=== PATIENT | female | born 1995 | race African-American/Black ===

== ENCOUNTER 2019-07-25 16:55 | Outpatient (RCR) | payer OTHER, SELFPAY | END 2019-10-23 23:59 | disposition home or self-care (01) | LOC: ANHLAB 16:55 | PROVIDERS: PCP Obstetrics & Gynecology; Visit Provider Obstetrics & Gynecology | DX: Z36.87 Encounter for antenatal screening for uncertain dates (principal) | CPT/HCPCS: 36415; 84702 ==

== ENCOUNTER 2019-10-20 10:25 | Outpatient (CLI) | payer OTHER, SELFPAY ==
--- NOTE | ~2019-10-20 | US_ITS ---
EXAMINATION: US OB /maternal detail DATE: 10/20/2019 11:26 INDICATION: Second trimester anatomic survey TECHNIQUE: Real-time ultrasound of the pelvis was performed. COMPARISON: None. FINDINGS: There is a single living fetus in vertex presentation. The placenta is fundal. heart rate is 15 2 beats per minute (bpm). cardiac activity and movement are noted. The amniotic fluid in dex is 12.9 cm which is normal. The following anatomy was identified as normal: 4 chamber heart 3 vessel cord cord insertion kidneys urinary bladder stomach spine diaphragm ventricles cisterna magna cerebellum The following biometric data were obtained: Biparietal diameter (BPD): 4.7 cm; head circumference (HC): 17.2 cm; abdominal circumference (AC): 16 .1 cm; femur length (FL): 3.4 cm. These measurements are concordant. Estimated weight is 381 g +/- 57 g, which correlates with the >97th percentile when 03/11/2020 i s used as estimated date of delivery. As single measurements, these parameters are each equal to the following estimated gestational ages w ith ranges of +/- 2 standard deviations: BPD: 20 weeks 3 days +/- 1 weeks 5 days. HC: 19 weeks 6 days +/- 1 weeks 3 days. AC: 21 weeks 1 days +/- 2 weeks 0 days. FL: 20 weeks 5 days +/- 1 weeks 6 days. estimated gestational age based solely on measurements from this exam is 20 weeks 4 days +/- 1 weeks 3 days. IMPRESSION: 1. Single living fetus in vertex presentation. 2. Estimated weight is 381 g +/- 57 g, which correlates with the >97th percentile when 0 is used as estimated date of delivery. Reviewed, dictated and finalized at location A. IMPRESSION: 1. Single living fetus in vertex presentation. 2. Estimated weight is 381 g +/- 57 g, which correlates with the >97th pe rcentile when 03/11/2020 is used as estimated date of delivery.
== END 2019-10-20 10:26 | disposition home or self-care (01) ==
PROVIDERS: Visit Provider Obstetrics & Gynecology
DX: Z34.92 Encounter for supervision of normal pregnancy, unspecified, second trimester (principal); Z3A.00 Weeks of gestation of pregnancy not specified
CPT/HCPCS: 76805

== ENCOUNTER 2020-03-02 05:25 | Inpatient (IN) | payer OTHER, SELFPAY ==
[2020-03-02] VITALS (49 sets, daily range): BP systolic 80–119; BP diastolic 39–88; PULSE 51–124; RESP 18; TEMP 36.9–37.2; O2SAT 98–100
--- NOTE | 2020-03-02 05:25 | LDADM ---
This patient, Meir Jarrett, was admitted to Labor/Delivery/Recovery 106 on 03/02/20 at 05:25. Plans for labor, pain management and were discussed with patient. Patient/family oriented to hospital policies and general routines including ID bracelet, bed and alarms, visiting hours, pain management, procedures, bathroom and other care routines, personal items, smoking policy, room service/diet and guest tray routines, security routines, and visiting hours. Patient/Family are encouraged to report perceived risks to care and to ask questions if they do not understand what they are told or what they should do. See OBIX for further documentation.
[2020-03-02 06:17] LABS: Basophils Percent Auto 0.3 % (0.2-1.2); Eosinophils Absolute Auto 0.1 K/mm3 (0-0.3); Eosinophils Percent Auto 1.2 % (0-4.4); Hematocrit 37.6 % (37.0-47.0); Hemoglobin 12.7 g/dL (12.0-15.0); Immature Granulocyte Absolute 0.03 K/mm3 (0.00-0.031); Immature Granulocyte Percent A 0.3 % (0-0.5); Lymphocytes Absolute Auto 2.76 K/mm3 (0.9-3.2); Lymphocytes Percent Auto 31.9 % (18.3-44.2); Mean Corpuscular HGB Conc 33.8 g/dl (32-36); Mean Corpuscular Hemoglobin 29.3 pg (26-34); Mean Corpuscular Volume 86.6 fl (80-100); Monocytes Absolute Auto 0.5 K/mm3 (0.1-0.6); Monocytes Percent Auto 5.8 % (2.6-8.5); Neutrophils Absolute Auto 5.2 K/mm3 (1.3-6.7); Neutrophils Percent Auto 60.5 % (45.5-73.1); Platelet Count Result 248 k/mm3 (150-375); Red Blood Count 4.34 M/mm3 (4.2-5.4); Red Cell Distribution Width 13.2 % (11.5-14.5); White Blood Count 8.7 K/mm3 (4.5-10.0)
[2020-03-02] MEDS: OXYTOCIN 30 UNITS/NS 500 ML 30 UNITS/500 ML BAG IV CONT (06:42)
[2020-03-02] MEDS: LACTATED RINGERS 1,000 ML 125 ML IV CONT ×4 (06:42→12:04)
[2020-03-02] MEDS: AMPICILLIN 2 GM/NS 100 ML 2 GM/100 ML BAG IVPB (06:43)
--- NOTE | 2020-03-02 07:16 | WPDOBADMIT ---
Obstetrics - Admit Note Admission Note: record reviewed. No pertinent additions to the history and/or any subsequent changes in the physical findings that are not consistent with the expected course of the were found. Additions to the history and/or subsequent changes in the physical findings follow. Here for MIL at 38 5/7 wks per M recommend delivery for decreased DELORES and small pericardial effusion suspected to be physiologic. Cervix 3-4/50/-2 anterior. AROM with clear fluid. FHTs reactive
[2020-03-02] MEDS: AMPICILLIN 1 GM/NS 50 ML 1 GM/50 ML BAG IVPB (10:49)
--- NOTE | 2020-03-02 11:28 | P.PNAN_ITS ---
Anes - Eval Pre Procedure Procedure: Labor Epidural Date/Time: 03/02/20 11:28 Surgeon: Iram Preop Diagnosis: Labor Pain Pre Op Diagnosis: IOL Patient Data Age: 24 Gender: F Height: 5 ft 3 in Weight: Last Vital Signs Temp 37.1 C 03/02/20 09:00 Pulse 63 03/02/20 11:26 BP 106/65 03/02/20 11:26 Pulse Ox 100 03/02/20 11:24 Allergies Allergy/AdvReac Type Severity Reaction Status Date / Time No Known Allergies Allergy Verified 03/01/20 15:58 Home Medications Medication Instructions Recorded Confirmed Type PNV cmb#95-ferrous fumarate-FA 1 tablet PO DAILY 03/01/20 03/01/20 History [] Laboratory Tests 03/02/20 03/02/20 03/02/20 06:07 06:07 06:07 WBC 8.7 K/mm3 K/mm3 (4.5-10.0) RBC 4.34 M/mm3 M/mm3 (4.2-5.4) Hgb 12.7 g/dL g/dL (12.0-15.0) Hct 37.6 % % (37.0-47.0) MCV 86.6 fl fl (80-100) MCH 29.3 pg pg (26-34) MCHC 33.8 g/dl g/dl (32-36) RDW 13.2 % % (11.5-14.5) Plt Count 248 k/mm3 k/mm3 (150-375) MPV 10.0 fl fl (7.4-10.4) Immature Gran % (Auto) 0.3 % % (0-0.5) Neut % (Auto) 60.5 % % (45.5-73.1) Lymph % (Auto) 31.9 % % (18.3-44.2) Cobb % (Auto) 5.8 % % (2.6-8.5) Eos % (Auto) 1.2 % % (0-4.4) Baso % (Auto) 0.3 % % (0.2-1.2) Lymph # (Auto) 2.76 K/mm3 K/mm3 (0.9-3.2) Cobb # (Auto) 0.5 K/mm3 K/mm3 (0.1-0.6) Eos # (Auto) 0.1 K/mm3 K/mm3 (0-0.3) Baso # (Auto) 0.0 K/mm3 K/mm3 (0.0-0.1) Abs Immat Gran (auto) 0.03 K/mm3 K/mm3 (0.00-0.031) Absolute Neuts (auto) 5.2 K/mm3 K/mm3 (1.3-6.7) Absolute Nucleated RBC 0.0 K/mm3 K/mm3 (0.0-0.012) Nucleated RBC % 0.0 % % (0.0-0.2) RPR Pending Blood Type O Positive Antibody Screen Negative : gestational age (GUNNAR 03/11/20) Patient hx anesthesia problems: none Family hx anesthesia problems: none [facility] Family History Family History (Updated 03/01/20 @ 15:59 by Alvin Santana RN) Other Unknown family medical history Social History Social History Smoking status: Never smoker Second hand tobacco smoke exposure: No Substance use: never Spiritual care concerns: No Exam Day of Procedure 03/02/20 11:28
--- NOTE | 2020-03-02 11:55 | PM.OBPRVD ---
OB - Delivery Note Procedure Delivery date: 03/02/20 Procedure: events: Labor Induction and Oligohydramnios Intrapartal events: None Induction method: AROM and per pitocin protocol Delivery monitor: external FHT and external uterine Route of delivery: Laceration description: Labial (bilateral lacerations between labia majora and minora R>L) Delivery repair: vicryl (3-0 on sh) Specimen: Yes (placenta) Estimated blood loss (mL): 100 Anesthesia type: Epidural Disposition: floor [place] Baby Weeks of gestation at delivery: 38 Infant gender: Female presentation: vertex Placenta delivery description: Spontaneous cord vessel description: 3 Vessels score one minute: 9 score five minutes: 9
--- NOTE | 2020-03-02 11:58 | PM.OBDSVD ---
DS: Admitting Diagnosis Admitting Diagnosis Admitting Diagnosis: IUP 38 4/ oligohydramnios pericardial effusion OB - DS: Summary OB Procedures : NST and Ultrasound OB Procedures Intrapartum: Spontaneous Vag Delivery OB Procedures: : None Peripartum Data Delivery Method: Natural Vaginal Laceration description: Labial complications: none Status at Discharge Functional status at discharge: independent ambulation Overall status at discharge: patient is progressing back to baseline Time Spent with Patient Time attestation: Total time spent providing and/or coordinating discharge services: DS: Data Data Completed and Pending Labs on day of discharge: Labs from last 24 hours 03/02/20 03/02/20 03/02/20 06:07 06:07 06:07 WBC 8.7 RBC 4.34 Hgb 12.7 Hct 37.6 MCV 86.6 MCH 29.3 MCHC 33.8 RDW 13.2 Plt Count 248 MPV 10.0 Immature Gran % (Auto) 0.3 Neut % (Auto) 60.5 Lymph % (Auto) 31.9 [place] % (Auto) 5.8 Eos % (Auto) 1.2 Baso % (Auto) 0.3 Lymph # (Auto) 2.76 [place] # (Auto) 0.5 Eos # (Auto) 0.1 Baso # (Auto) 0.0 Abs Immat Gran (auto) 0.03 Absolute Neuts (auto) 5.2 Absolute Nucleated RBC 0.0 Nucleated RBC % 0.0 RPR Pending Blood Type O Positive Antibody Screen Negative Discharge Plan Discharge Attending physician on discharge: Rachelle Walden Consulting providers: Maldonado Canas Jr. Discharging Clinician: Rachelle Walden Anticipated Discharge Date/Time: 03/03/20 09:39 Patient Disposition: Home, Self-Care Activity: may shower and pelvic rest Diet: regular Patient Instructions: Antibiotic Form Stand Alone Forms: General Discharge Information Follow-up/Referrals: Rachelle Walden MD [Physician] - 6 Weeks Discharge Medications: Continued PNV cmb#95-ferrous fumarate-FA [] 28 mg iron- 800 mcg Tablet 1 tablet PO DAILY RF: 0 Date of admission: 03/02/20 05:25 Primary Care Provider: PHYSICIAN,SUPERVISOR CUTTING AND SEWING ROOM Admitting Provider: Rachelle Walden Attending physician on admission: Rachelle Walden Condition: Stable
[2020-03-02] MEDS: OXYTOCIN 30 UNITS/NS 500 ML 30 UNITS/500 ML BAG 125 UNITS IV CONT (12:18)
[2020-03-02] MEDS: BENZOCAINE 20% AER SPR (*SP) 56 GM CAN 1 SPRAY TOPICAL (14:17)
[2020-03-02] MEDS: WITCH HAZEL 40 PADS 1 PAD TOPICAL (14:17)
--- NOTE | 2020-03-02 16:04 | PC.NURSE ---
Patient transferred to post room #291 via wheelchair. Support person present. Oriented to unit, room, information board, rooming in, admission packet and security measures. Patient verbalizes understanding.
[2020-03-02] MEDS: IBUPROFEN 600 MG TABLET PO (18:55)
[2020-03-03] MEDS: IBUPROFEN 600 MG TABLET PO ×2 (04:44→17:46)
[2020-03-03 05:16] LABS: Hematocrit 36.5 % (37.0-47.0); Hemoglobin 12.3 g/dL (12.0-15.0)
[2020-03-03] MEDS: DOCUSATE SODIUM 100 MG CAPSULE PO (09:24)
[2020-03-03] MEDS: MULTIVIT/MIN/PREN/FOL AC/IRON TABLET 1 TAB PO (09:25)
[2020-03-03 09:30] VITALS: BP 104/63; PULSE 66; RESP 14; TEMP 36.3; O2SAT 98
--- NOTE | 2020-03-03 09:38 | PM.OBPNVD ---
OB - PN: Subj Subjective Date/time seen: 03/03/20 09:38 Patient comments: no complaints and pain well controlled baby status: doing well OB - PN: Obj Data Labs CBC & Chem 7: 03/03/20 04:17 Labs: Laboratory Results - last 24 hr 03/03/20 04:17 Hgb 12.3 Hct 36.5 L OB - PN A/P Plan day: 1 Plan: routine care, discharge home (possible dc if ok with peds) and follow up 6 weeks Comments: Unsure plans for bc Time Spent With Patient Time: Total time spent is greater than 50% in coordination of care (as documented) at patient's floor/unit and/or counseling patient: Exam : Bimanual exam- vagina & uterus: other (Uterus firm, nt @U)
--- NOTE | 2020-03-03 12:23 | WPDANLDPN2 ---
Anes-Prog Note L&D Date/Time: 03/03/20 12:23 Comfortable throughout: labor and delivery Neuraxial method: epidural Epidural/Spinal procedure site: clean & non-tender Neuro status: Neuro function grossly intact. Cardiovascular status: normal Respiratory status: normal Airway patency: baseline Mental status: baseline Post-Op hydration status: normal Vital Signs: Last Vital Signs Temp 36.3 C L 03/03/20 09:30 Pulse 66 03/03/20 09:30 Resp 14 03/03/20 09:30 BP 104/63 03/03/20 09:30 Pulse Ox 98 03/03/20 09:30 I/O: Intake & Output 03/02/20 03/03/20 03/03/20 23:59 07:59 15:59 Intake Total 240 Balance 240 Post-procedural complaints: none Patient feedback: Patient satisfied with anesthetic care.
[2020-03-03 19:00] VITALS: BP 119/50; PULSE 65; RESP 16; TEMP 37.2; O2SAT 100
[2020-03-04 08:15] VITALS: BP 120/74; PULSE 59; RESP 16; TEMP 37.6; O2SAT 99
[2020-03-04 08:20] LABS: Rapid Plasma Reagin Non-Reactive (NonReactive)
[2020-03-04] MEDS: MULTIVIT/MIN/PREN/FOL AC/IRON TABLET 1 TAB PO (10:00)
--- NOTE | 2020-03-04 11:45 | PM.OBPNVD ---
OB - PN: Subj Subjective Date/time seen: 03/04/20 11:45 Patient comments: no complaints and pain well controlled baby status: doing well OB - PN: Obj Data Labs CBC & Chem 7: 03/03/20 04:17 Labs: Laboratory Results - last 24 hr 03/02/20 06:07 RPR Non-reactive OB - PN A/P Plan day: 2 Plan: discharge home and follow up 6 weeks Time Spent With Patient Time: Total time spent is greater than 50% in coordination of care (as documented) at patient's floor/unit and/or counseling patient: Exam : Bimanual exam- vagina & uterus: other (Uterus firm, nt @U)
--- NOTE | 2020-03-04 11:50 | PC.NURSE ---
Consult with pt., mother reports she is breast and bottle feeding. Mother states was mostly the first day of life using a nipple shield and no supplementation, began with sleepiness and she initiated supplementation. Mother was set up with a pump at bedside, she is not pumping after feeding attempts. Mother states she has difficulties with latching and will attempt a few minutes then bottle feed. Mother has a 4 year old at home and may not have the time for all of this. Mother states she wishes to breastfeed, as she attempted for 1 day with first child and switched to formula. Discussed the importance of stimulation of milk supply and waking infant to feed every 3-4 hours if she is formula feeding and 2-3 if infant is at breast. Reviewed feeding HX on blue feeding/elimination flowsheet for long periods infant was not fed and needs to be awoken to feed. again stressed infant must feed at least 20-30 mls EBM/formula each feeding. Instructions given on application and cleaning of shield. Discussed nipple shield precautions and possible complications. Patient able to return demonstration on proper application of shield. Discussed the need to initiate regular pumping if continues to nurse with the shield. Patient verbalizes understanding. Reviewed infant feeding cues, frequencies, duration of feedings, feeding elimination flow sheet, and signs of adequate intake. Demonstrated stimulation techniques to wake infant for feeding. Assisted with infant to breast. Reviewed positioning/alignment in cross cradle, holding breast in U hold and guided asymmetrical latch on. Discussed the rational for each. Infant was able to latch correctly using the shield. nursed eagerly with steady draws and occasional swallowing followed with long pausing. Reviewed signs of a correct latch, effective nursing and suck swallow ratio. was able to maintain latch without discomfort to mother. Nipple care reviewed. Advised to stimulate to keep infant awake and nursing effectively for increased intake, stimulation of milk supply and to assist with maintaining deep latch. Reviewed transition to breast milk, signs of adequate intake, and engorgement/relief. Instructed to call ICP if intake/output less than required. Reviewed regular medications mother is taking. Information provided per Ysabel. Reviewed community resources on the [employer] website and in the Mom/Baby guide. Information on outpatient services provided. Mother has no further questions at this time.
[2020-03-05 11:16] VITALS: BP 117/58; PULSE 75; RESP 16; TEMP 37.4; O2SAT 99
== END 2020-03-04 15:19 | disposition home or self-care (01) | DRG 560 ==
LOC: ANHLDR 11:59 → ANHOB2 14:57
PROVIDERS: Admitting Provider Obstetrics & Gynecology Gynecology; Visit Provider Obstetrics & Gynecology Gynecology
DX: O35.8XX0 Maternal care for other (suspected) fetal abnormality and damage, not applicable or unspecified (principal); O41.03X0 Oligohydramnios, third trimester, not applicable or unspecified; Z37.0 Single live birth; Z3A.38 38 weeks gestation of pregnancy; O99.824 Streptococcus B carrier state complicating childbirth; O70.0 First degree perineal laceration during delivery
CPT/HCPCS: 36415; 85014; 85018; 85025; 86592; 86850; 86900; 86901; A9270; J0290; J2590; J2795; J7120

== ENCOUNTER 2021-12-13 15:16 | Emergency (ER) | payer OTHER, MEDICAID, SELFPAY ==
--- NOTE | ~2021-12-13 | US_ITS ---
EXAMINATION: US OB <=14 wk fetus w TV INDICATION: Vaginal bleeding. LMP 11/15/2021. GUNNAR by LMP 08/22/2022. Gestational age by LMP 4 weeks 0 d ays. TECHNIQUE: Sonography of the pelvis was performed by transabdominal and transvaginal techniques. COMPARISON: None. RESULT: Uterus: - Orientation: Anteverted - Size: 7.8 x 4.4 x 4.6 cm - Myometrium: homogeneous echogenicity. Endometrial complex measures 1.2 cm. Small amount of flu id noted in the cervix. Gestation: - Intrauterine gestational sac: Not seen Right ovary: - Size : 4.1 x 2.7 x 2.3 cm - 1.9 cm cyst. Vascular flow is present. Left ovary: - Size: 2.1 x 1.8 x 2.9 cm - Normal sonographic appearance with physiologic follicles. Vascular flow is present. Pelvis free fluid: None. IMPRESSION: No visible intrauterine gestational sac, which may be normal in early . Spontaneous and ectopic are not excluded. Serial beta hCGs are recommended. No adnexal mass or free fl uid. Reviewed, dictated and finalized at location K. IMPRESSION: No visible intrauterine gestational sac, which may be normal in early . Spontaneous and ectopic are not excluded. Serial beta hCGs are recommended. No adnexal mass or free fluid.
[2021-12-13 15:28] VITALS: BP 138/74; PULSE 91; RESP 16; TEMP 36.9; O2SAT 100
--- NOTE | 2021-12-13 16:03 | ED.FEMALEGU ---
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 EYES: Denies visual changes, redness, or discharge. ENT: Denies rhinorrhea, congestion, sore throat, or otalgia. CARDIOVASCULAR: Denies chest pain, palpitations, or edema. RESPIRATORY: Denies cough or dyspnea. GASTROINTESTINAL: Denies abdominal pain, nausea, vomiting, or diarrhea. GENITOURINARY: Denies dysuria or hematuria. has mild vaginal bleeding SKIN: Denies rash or itching. MUSCULOSKELETAL: Denies back pain, joint pain, or myalgia. NEUROLOGIC: Denies headache, numbness, or weakness. PSYCHIATRIC: Denies anxiety or depression. [facility] Family History Family History (Updated 03/01/20 @ 15:59 by Alvin Santana RN) Other Unknown family medical history Social History Social History Smoking status: Never smoker Second hand tobacco smoke exposure: No Substance use: never Spiritual care concerns: No Exam Narrative: APPEARANCE: Well appearing, no pain in distress, well-nourished. Head normocephalic atraumtaic. EYES: PERRLA/EOMI, conjunctivae very clear. NOSE: Normal no drainage EARS:TMS clear Barby Thompson, with good light reflex. THROAT: Pharynx clear, no exudate. NECK: Supple. No adenopathy, no masses. RESPIRATORY: Airway patent, repsirations nonlabored. Clear to auscultation bilaterally, no rales, rhonchi, wheezing. CARDIOVASCULAR: Regular rate and rhythm without murmurs rubs or gallops. ABDOMINAL: Soft, nontender, nondistended, no hepatosplenomegally MUSCULOSKELETAl: Moves all extremities. Strenght/ROM intact, No edema, No calf tenderness. NEURO: Alert. Cranial nerves II through XII intact. Good gait. Good coordination SKIN:: Warm, dry. Normal Color PSYCHIATRIC: Normal affect/mood, normal interaction with parents. Course Course Emergency Course: updated pt at 136 adn h/o O+ blood in past will d/c home Vital Signs Vital signs: Vital Signs Temperature 36.9 C 12/13/21 15:28 Pulse Rate 91 12/13/21 15:28 Respiratory Rate 16 12/13/21 15:28 Blood Pressure 138/74 12/13/21 15:28 Pulse Oximetry 100 12/13/21 15:28 Temperature 36.9 C 12/13/21 15:28 Pulse Rate 91 12/13/21 15:28 Respiratory Rate 16 12/13/21 15:28 Blood Pressure 138/74 12/13/21 15:28 Pulse Oximetry 100 12/13/21 15:28 MDM - Female Genitourinary Lab Data Attestation: I reviewed the patient's lab results. Labs: Lab Results 12/13/21 Range/Units 16:52 Beta HCG, Quant 4.60 mIU/ML Imaging Data Radiologist's impression: Impressions Obstetrics Ultrasound 12/13/21 16:53 IMPRESSION: No visible intrauterine gestational sac, which may be normal in early . Spontaneous and ectopic are not excluded. Serial beta hCGs are recommended. No adnexal mass or free fluid. Discharge Plan Discharge Clinical Impression: Vaginal bleeding Patient Disposition: Home, Self-Care Condition: Stable Instructions: Antibiotic Form, Threatened Miscarriage (ED) Additional Instructions: follow up sapna palacios for further care, repeat labs, ultrasound, return if new issues Prescriptions: No Action PNV cmb#95-ferrous fumarate-FA [] 28 mg iron- 800 mcg Tablet
== END 2021-12-13 17:54 | disposition home or self-care (01) ==
PROVIDERS: Emergency Provider Emergency Medicine; PCP Obstetrics & Gynecology Gynecology
DX: O20.9 Hemorrhage in early pregnancy, unspecified (principal); Z3A.01 Less than 8 weeks gestation of pregnancy
CPT/HCPCS: 36415; 76801; 76817; 84702; 99284